=== PATIENT | female | born 1955 | race Caucasian/White ===

== ENCOUNTER 2025-03-07 09:29 | Outpatient (CLI) | payer MEDICARE, BC, SELFPAY | END 2025-03-07 09:30 | disposition home or self-care (01) | LOC: INJ CL 09:35 | PROVIDERS: PCP Family Medicine; Visit Provider Family Medicine | DX: M54.16 Radiculopathy, lumbar region (principal); M51.369 Other intervertebral disc degeneration, lumbar region without mention of lumbar back pain or lower extremity pain | CPT/HCPCS: 64483; Q9966 ==

== ENCOUNTER 2025-03-22 10:17 | Emergency (ER) | payer MEDICARE, BC, SELFPAY ==
--- OUTSIDE RECORDS SUMMARY | 2025-03-22 10:19 | XMS_ITS | Clinical Summary ---
Author Organization [facility] Address [address] [place] [id number] Care Team Providers Care Uptwister Tender Name Role Phone Diana Martin DO Primary Care Provider Allergies No known active allergies Medications MULTIVITAMIN TAB take 1 tablet by oral route once daily with food 0 12/19/19 08 Active cholecalciferol (VITAMIN D) 1,000 unit capsule Take 1 capsule by mouth once daily. 0 11/15/19 13 Active aspirin (ECOTRIN) 81 mg enteric coated tablet Take 1 tablet by mouth once daily with a meal. 0 11/03/19 17 Active yjmkianfsxg-dblmbl-ohre- collag [id number] mg tab One tablet daily. 0 03/11/20 19 Active calcium carbonate (CALTRATE) 600 mg calcium (1,500 mg) tablet Take 1 Tablet (600 mg) by mouth once daily with a meal. 180 Tablet 3 08/17/19 22 Active ALPRAZolam (XANAX) 0.25 mg tabletIndications:Anxiet y state TAKE 1 TO 2 TABLETS BY MOUTH UP TO THREE TIMES DAILY NEEDED 30 Tablet 2 09/01/19 24 Active fluticasone (50 mcg per actuation) nasal solution (FLONASE)Indications:Env ironmental allergies,Dysfunction of left eustachian tube Inhale 2 Sprays in both nostrils once daily. 16 g 11 09/05/19 25 Active rosuvastatin 5 mg tabletIndications:Famili al hypercholesterolemia Take 1 Tablet (5 mg) by mouth at bedtime. 90 Tablet 3 09/05/19 25 Active temazepam 7.5 mg capsuleIndications:Anxie ty state,Insomnia, idiopathic Take 1-2 Capsules (7.5-15 mg) by mouth at bedtime if needed for Sleep. 45 Capsule 1 09/05/19 25 Active alendronate (FOSAMAX) 70 mg tabletIndications:Osteop orosis without current pathological fracture, unspecified osteoporosis type TAKE ONE TABLET BY MOUTH ONCE A WEEK IN THE MORNING ON AN EMPTY STOMACH WITH A FULL GLASS OF WATER, DO NOT LIE DOWN FOR ONE HOUR 13 Tablet 3 02/09/20 25 Active omeprazole 20 mg tabletIndications:Other cough Take 1 Tablet (20 mg) by mouth once daily before a meal. 90 Tablet 1 02/18/20 25 Active cyclobenzaprine (FLEXERIL) 5 mg tabletIndications:Lumbos acral radiculopathy at L4,Spinal stenosis of lumbar region without neurogenic claudication Take 1 Tablet (5 mg) by mouth three times daily. 30 Tablet 03/19/20 25 Active Active Problems Problem Noted Date Diagnosed Date Pap smear for cervical cancer screening 08/16/19 Overview (04/22/2022): 08/2021 UNS/HPV negative 03/2022 NIL. Plan: Routine Screening. Rotator cuff strain 11/07/2011 Overview (11/07/2011): Suggest avoid activities which exacerbate. 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 Office Visit [facility] at [address] [address] Finesse Sin MD Procedure (Left L4-5 TFESI) 03/07/2025 Travel 03/02/2025 Travel 02/10/2025 Orders Only [facility] [address] [place] [address] Diana Martin DO <No scans attached> 02/07/2025 2:00 PM CDT Ancillary Procedure [address] [address] 02/07/2025 Travel 02/07/[address] [id number] Diana Martin DO Refill Request (Alendronate) 02/02/2025 Travel 01/24/2025 11:15 AM CDT Ancillary Procedure [address] [address] 01/24/2025 10:15 AM CDT Office Visit [address] [address] Diana Martin DO Hip Pain/problem (ongoing, goes down leg) 01/24/2025 Travel 01/22/2025 Travel 12/30/2024 12:45 PM [address]T Orders [facility] [address] [facility] [place] [address] Rachel Tillman <No scans attached> 12/29/2024 Travel 12/24/2024 Orders Only [address] [address] Diana Martin DO <No scans attached> 12/23/2024 9:00 AM CDT Office Visit [address] [address] Eliz Larsen PA Musculoskeletal Problem (Low back pain, Hx of bulging disk ) 12/23/2024 Travel from Last 3 Months Immunizations Immunization Administration Dates Next Due COVID-19 vaccine (Moderna 100mcg/0.5mL) YOLI ROMERO 03/21/2021,07/16/2020,06/18/2020 COVID-19 vaccine (Moderna 50mcg/0.5mL) 12YO+ BIVALENT PF, MDV 03/29/2022 COVID-19 vaccine (Pfizer-Bio NTech 30mcg/0.3mL) PF, MDV 09/08/2020,08/18/2020 Influenza A (H1N1), Inactiva allyssa (Age >=3 Years) 04/07/2009 Influenza, IIV3 (Age >=3 years) 01/21/20 11,02/15/2010,01/21/2010,2008 Influenza, IIV4 03/29/2022, 0,03/11/2019,2017 Influenza, Inactivated AIIV4 (Age 65+ Years) Preserv Free 05/02/2023 Influenza, Inactivated IIV3 (Age 65+ Years) Preserv Free 01/24/2025 Influenza,CCIIV4 PRESERV FREE 03/21/2021 Pneumococcal Conj 20-valent (Prevnar 20) 08/17/2022 Td (Age >=7 Years) 08/16/2021,02/20/2006 Tdap 11/07/2011 Tuberculin (PPD) 12/19/2007 Zoster (Shingrix-RZV, recombinant) 06/10/2019, Family History Medical History Relation Name Comments Cancer Brother Myke prostate Diabetes Brother Myke Hyperlipidemia Brother Myke Cancer Father Chacho Lawrence small cell Heart Disease Father Chacho Lawrence Angina/had aortic anurysim Stroke Father Chacho Lawrence Cancer-breast Maternal Aunt 70's Diabetes Mother Asha Psychiatric illness Mother Asha mental h ealth concerns Dementia Sister 1 Ashtyn early signs Hyperlipidemia Sister 1 Ashtyn Other Sister 1 Ashtyn Anxiety Issues Anesthesia Problem No Family History Blood Disease No Family History Relation Name Status Comments Brother Myke Father Chacho Lawrence (Age 74) small c ell ca Maternal Aunt Mother Asha (Age 81) Sister 1 Ashtyn Alive Sister 2 Mary (Age 34) Down's Syn drome Social History Tobacco Use Types Packs/Day Years Used Date Smoking Tobacco: Never Smokeless Tobacco: Never Tobacco Cessation:Counseling Given: No Alcohol Use Standard Drinks/Week Comments Yes 7 (1 standard drink = 0.6 oz pur e alcohol) occ PHQ-2 Answer Date Recorded PHQ-2 TOTAL SCORE 0 09/03/2024 [facility] - Occupational Stress Questionnaire Answer Date Recorded Feeling of Stress To some extent 03/11/2019 Exercise Vital Sign Answer Date Recorde d Days of Exercise per Week 2 days 2018 Minutes of Exercise per Session 60 min 03/11/2019 Social Connections Answer Date Recorded Do you often feel lonely or isolated from those around you? 0 09/04/2024 Alcohol Use Answer Date Recorded How often do you have a drink containing alcohol ? 0 12/23/2024 Average Number of Drinks Not on file 025 Frequency of Binge Drinking Not on file 11/2024 Financial Resource Strain Answer Date R ecorded Difficulty of Paying Living Expenses 3 09/04/2024 Difficulty of Paying Living Expenses Not on file 09/04/2024 Food Insecurity Answer Date Recorded Do you worry your food will run out before you are able to buy more? 1 09/04/2024 Transportation Needs Answer Date Record ed Does lack of transportation keep you from medica l appointments? 1 09/04/2024 Does lack of transportation keep you from work, meetings or getting things that you need? 1 09/04/2024 Housing Stability Answer Date Recorded What is your housing situation today? 1 09/04/2024 Utilities Answer Date Recorded Do you have trouble paying f or utilities (for example, heat, electricity, water, phone)? 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 Gender Identity Not on file Sexual Orientation Not on file Occupation Industry Job Start Date Job End Date [employer]: [employer] Not on file Not on file Not on file Obstetrics History Para Term AB IAB SAB Ectopic Multiple Livin g Live Births 2 2 2 Date Outcome GA Total Labor Labor/2nd/3rd Weight Sex Type Anes PTL Destiny A1 A5 Name Clin Para Para Comments:C section: Fa cial Presentation Last Filed Vital Signs Vital Sign Reading Time Taken Comments Blood Pressure 111/67 01/24/2025 10:20 AM CDT Pulse 70 01/24/2025 10:20 AM CDT Temperature 36.4 C (97.6 F) 12/23/2024 9:07 AM CDT Respiratory Rate 20 05/16/2019 3:01 PM MAIN LINE STATION ENGINEER Oxygen Saturation 100% 01/24/2025 10:20 AM CDT Inhaled Oxygen Concentration - - Weight 58.1 kg (128 lb) 01/24/2025 10:20 AM CDT Height 159.5 cm (5' 2.8) 09/04/2024 8:25 AM CDT Body Mass Index 22.82 09/04/2024 8:25 AM CDT Plan of Treatment Health Maintenance Due Date Last Done Comments COVID-19 vaccine series (2024- season) 2024 05/02/2023, 03/29/2022, 03/21/2021, Additional history exists Mammogram for age 45-75 08/28/2025 08/29/19, 08/28/2023, 08/17/2022, Additional history exists Depression screening for age 12+ 09/03/2025 09/03/2024, 08/23/2023, 03/22/2023, Additional history exists BMI (ht and wt on same day) for age 18+ 09/04/2025 09/04/2024, 08/23/2023, 08/17/2022, Additional history exists Medicare Wellness for age 65+ 09/05/2025 09/04/2024, 08/23/2023, 08/17/2022 Lipids for age 45-75 09/04/2029 09/04/2024, 08/23/2023, 08/17/2022, Additional history exists Colonoscopy through age 75 01/27/203001/27, 01/28/2020, 01/28/2020, Additional history exists Tetanus booster 08/17/2031 08/16/2021, 10/16, 02/20/2006 RSV vaccine for adults or (1 - 1-dose 75+ series) 2032 Hepatitis C screening for age 18-79 Completed 11/14/2012 Zoster (shingles) series for age 50+ Completed 06/10/2019, 03/11/2019 Pneumococcal series for age 50+ Completed 08/17/2022 DEXA/DXA scan for age 65+ Completed 2023, 09/01/2021, 08/16/2021, Additional history exists Influenza Vaccine Completed 01/24/2025, , 03/29/2022, Additional history exists Hepatitis B series for 19+ Aged Out N o longer eligible based on patient's age to complete this topic Procedures Procedure Name Priority Date/Time Associated Diagnosis Comments AMB EPIDURAL STEROID INJECTION Routine 03/07/2025 6:52 AM MAIN LINE STATION ENGINEER Lumbosacral radiculopathy at L4 Spinal stenosis of lumbar region with neurogenic claudication WA NJX AA&/STRD TFRML EPI LUMBAR/SACRAL 1 LEVEL Routine 03/07/2025 12:00 AM MAIN LINE STATION ENGINEER Lumbosacral radiculopathy at L4 Spinal stenosis of lumbar region with neurogenic claudication MR SPINE LUMBAR WO Routine 02/07/2025 2: 20 PM CDT Chronic midline low back pain with left-sided sciatica XR SPINE LUMBAR MINIMUM 4 VIEWS Routine 01/24/2025 11:25 AM CDT Chronic midline low back pain with left-sided sciatica C-REACTIVE PROTEIN Routine 12/30/2024 1: 19 PM CDT Gluteal pain Degeneration of intervertebral disc of lumbar region with discogenic back pain SEDIMENTATION RATE Routine 12/30/2024 1: 19 PM CDT Gluteal pain Degeneration of intervertebral disc of lumbar region with discogenic back pain LIPID PANEL W REFLEX MEASURED LDL Routine 09/04/2024 9:26 AM CDT Familial hypercholesterolemia Mixed hyperlipidemia XR MAMMO YESSENIA BILAT SCREEN Routine 08/28/2024 3:30 PM CDT Visit for screening mammogram XR DXA BONE DENSITY 2 SITES AXIAL Routine 08/28/2023 3:15 PM CDT Postmenopausal Osteoporosis without current pathological fracture, unspecified osteoporosis type COLONOSCOPY SCREENING Routine 01/28/2020 9:34 AM CDT Screening for colon cancer ANTI HCV Routine 11/14/2012 2:56 PM CDT Fatigue from Last 3 Months or Most Recently Relevant to Health Maintenance Results * WA NJX AA&/STRD TFRML EPI LUMBAR/SACRAL 1 LEVEL (03/07/2025 12:00 AM MAIN LINE STATION ENGINEER) us Finesse Sin MD PB - NERVOUS SYSTEM SERVIC ES Final Result * MR SPINE LUMBAR WO (02/07/2025 2:20 PM CDT) Anatomical Region Laterality Modality Spine, LUMBAR SPINE Magnetic Res onance 02/08/2025 9:07 PM CDT Addenda Addendum by Jayson Garrison MD on 02/08/2025 9:59 PM CDT For Patients: As a result of the Cures Act, medical imaging exams and procedure reports are released immediately into your electronic medical record. You may view this report before your referring provider. If you have questions, please contact your health care provider. INDICATION: Chronic midline low back pain, left-sided sciatica. TECHNIQUE: Multisequence multiplanar MRI of the lumbar spine without the use of intravenous contrast. COMPARISON: Correlated with lumbar spine radiographs dated 01/24/2025. FINDINGS: Leftward upper lumbar curvature with apex at L1-L2. Posterior aspects of the vertebral bodies are aligned. Vertebral body heights are maintained. There is multilevel disc desiccation and height loss. The conus medullaris terminates normally at the upper L1 level. T12-L1: Posterior disc bulge eccentric to the right. Mild bilateral facet joint arthrosis. Mild narrowing of the right lateral recess. No high-grade spinal canal stenosis or significant neural foraminal narrowing. L1-L2: Symmetric disc bulge. Moderate right facet joint arthrosis. Mild narrowing of the right lateral recess. No high-grade spinal canal stenosis or significant neural foraminal narrowing. L2-L3: Symmetric disc bulge. Moderate bilateral facet joint arthrosis. Mild narrowing of the right lateral recess. No high-grade spinal canal stenosis or significant neural foraminal narrowing. L3-L4: Symmetric disc bulge. Advanced facet joint arthrosis with a 7 mm anteriorly projecting right facet joint synovial cyst (series 7, image 9). Severe spinal canal stenosis with near-complete effacement of the thecal sac. Mild bilateral neural foraminal narrowing. L4-L5: Symmetric disc bulge. Moderate facet joint arthrosis. Mild spinal canal stenosis and moderate left neural foraminal narrowing. No significant right neural foraminal narrowing. L5-S1: Mild facet joint arthrosis. No significant spinal canal or neural foraminal stenosis. IMPRESSION: 1. Leftward upper lumbar curvature with apex at L1-L2. 2. At T12-L1, L1-L2, and L2-L3, mild narrowing of the right lateral recess. 3. At L3-L4, severe spinal canal stenosis with near complete effacement of the thecal sac. A 7 mm anteriorly projecting right facet joint synovial cyst (series 7, image 9) contributes to spinal canal stenosis. 4. At L4-L5, mild spinal canal stenosis and moderate left neural foraminal narrowing. Dictated by Reese Garrison MD @ 02/08/2025 9:59:36 PM (Electronically Signed) Addendum by Jayson Garrison MD on 02/08/2025 9:26 PM CDT For Patients: As a result of the Cures Act, medical imaging exams and procedure reports are released immediately into your electronic medical record. You may view this report before your referring provider. If you have questions, please contact your health care provider. INDICATION: Chronic midline low back pain. TECHNIQUE: Multisequence multiplanar MRI of the lumbar spine without the use of intravenous contrast. COMPARISON: Correlated with lumbar spine radiographs dated 01/24/2025. FINDINGS: Leftward upper lumbar curvature with apex at L1-L2. Vertebral body heights are maintained. No T1 hypointense infiltrative lesion is identified. There is multilevel disc desiccation and loss. The conus medullaris terminates normally the upper L1 level. T12-L1: Posterior disc bulge eccentric to the right. Mild facet joint arthrosis. Mild narrowing of the right lateral recess. No high-grade spinal canal stenosis or significant neural foraminal narrowing. L1-L2: Symmetric disc bulge. Moderate right facet joint arthrosis. Mild narrowing of the right lateral recess without high-grade spinal canal stenosis. No significant neural foraminal narrowing. L2-L3: Symmetric disc bulge. Moderate facet joint arthrosis. Mild narrowing of the right lateral recess. No high-grade spinal canal stenosis or significant neural foraminal narrowing. L3-L4: Symmetric disc bulge. Moderate facet joint arthrosis. Severe spinal canal stenosis with near-complete effacement of the thecal sac and mild bilateral neural foraminal narrowing. L4-L5: Symmetric disc bulge. Moderate facet joint arthrosis. Mild spinal canal stenosis and mild-moderate left neural foraminal narrowing. No significant right neural foraminal narrowing. L5-S1: Mild right and moderate left facet joint arthrosis. No significant spinal canal or neural foraminal stenosis. IMPRESSION: 1. Leftward upper lumbar curvature with apex at L1-L2. 2. At T12-L1, L1-L2, and L2-L3, mild narrowing of the right lateral recess. 3. At L3-L4, severe spinal canal stenosis with near complete effacement of the thecal sac. 4. At L4-L5, mild spinal canal stenosis and mild-moderate left neural foraminal narrowing. Dictated by Reese Garrison MD @ 02/08/2025 9:07:18 PM (Electronically Signed) Impressions 02/08/2025 9:07 PM CDT 1. Leftward upper lumbar curvature with apex at L1-L2. 2. At T12-L1, L1-L2, and L2-L3, mild narrowing of the right lateral recess. 3. At L3-L4, severe spinal canal stenosis with near complete effacement of the thecal sac. 4. At L4-L5, mild spinal canal stenosis and mild-moderate left neural foraminal narrowing. Dictated by Reese Garrison MD @ 02/08/2025 9:07:18 PM (Electronically Signed) Narrative 02/08/2025 9:07 PM CDT For Patients: As a result of the Cures Act, medical imaging exams and procedure reports are released immediately into your electronic medical record. You may view this report before your referring provider. If you have questions, please contact your health care provider. INDICATION: Chronic midline low back pain. TECHNIQUE: Multisequence multiplanar MRI of the lumbar spine without the use of intravenous contrast. COMPARISON: Correlated with lumbar spine radiographs dated 01/24/2025. FINDINGS: Leftward upper lumbar curvature with apex at L1-L2. Vertebral body heights are maintained. No T1 hypointense infiltrative lesion is identified. There is multilevel disc desiccation and loss. The conus medullaris terminates normally the upper L1 level. T12-L1: Posterior disc bulge eccentric to the right. Mild facet joint arthrosis. Mild narrowing of the right lateral recess. No high-grade spinal canal stenosis or significant neural foraminal narrowing. L1-L2: Symmetric disc bulge. Moderate right facet joint arthrosis. Mild narrowing of the right lateral recess without high-grade spinal canal stenosis. No significant neural foraminal narrowing. L2-L3: Symmetric disc bulge. Moderate facet joint arthrosis. Mild narrowing of the right lateral recess. No high-grade spinal canal stenosis or significant neural foraminal narrowing. L3-L4: Symmetric disc bulge. Moderate facet joint arthrosis. Severe spinal canal stenosis with near-complete effacement of the thecal sac and mild bilateral neural foraminal narrowing. L4-L5: Symmetric disc bulge. Moderate facet joint arthrosis. Mild spinal canal stenosis and mild-moderate left neural foraminal narrowing. No significant right neural foraminal narrowing. L5-S1: Mild right and moderate left facet joint arthrosis. No significant spinal canal or neural foraminal stenosis. Procedure Note Jayson Garrison MD - 02/08/2025 For Patients: As a result of the Cures Act, medical imagingexams and procedure reports are released immediately into your electronicmedical record. You may view this report before your referring provider.If you have questions, please contact your health care provider. INDICATION: Chronic midline low back pain. TECHNIQUE: Multisequence multiplanar MRI of the lumbar spine without the use ofintravenous contrast. COMPARISON: Correlated with lumbar spine radiographs dated 01/24/2025. FINDINGS: Leftward upper lumbar curvature with apex at L1-L2. Vertebral body heightsare maintained. No T1 hypointense infiltrative lesion is identified. Thereis multilevel disc desiccation and loss. The conus medullaris terminatesnormally the upper L1 level. T12-L1: Posterior disc bulge eccentric to the right. Mild facet jointarthrosis. Mild narrowing of the right lateral recess. No high-gradespinal canal stenosis or significant neural foraminal narrowing. L1-L2: Symmetric disc bulge. Moderate right facet joint arthrosis. Mildnarrowing of the right lateral recess without high-grade spinal canalstenosis. No significant neural foraminal narrowing. L2-L3: Symmetric disc bulge. Moderate facet joint arthrosis. Mildnarrowing of the right lateral recess. No high-grade spinal canal stenosisor significant neural foraminal narrowing. L3-L4: Symmetric disc bulge. Moderate facet joint arthrosis. Severe spinalcanal stenosis with near-complete effacement of the thecal sac and mildbilateral neural foraminal narrowing. L4-L5: Symmetric disc bulge. Moderate facet joint arthrosis. Mild spinalcanal stenosis and mild-moderate left neural foraminal narrowing. Nosignificant right neural foraminal narrowing. L5-S1: Mild right and moderate left facet joint arthrosis. No significantspinal canal or neural foraminal stenosis. IMPRESSION: 1. Leftward upper lumbar curvature with apex at L1-L2. 2. At T12-L1, L1-L2, and L2-L3, mild narrowing of the right lateralrecess. 3. At L3-L4, severe spinal canal stenosis with near complete effacement ofthe thecal sac. 4. At L4-L5, mild spinal canal stenosis and mild-moderate left neuralforaminal narrowing. Dictated by Reese Garrison MD @ 02/08/2025 9:07:18 PM (Electronically Signed) us Diana Martin DO MR Edited Resu lt - Final * XR SPINE LUMBAR MINIMUM 4 VIEWS (01/24/2025 11:25 AM CDT) Anatomical Region Laterality Modality Spine, LUMBAR SPINE Computed Rad iography 01/24/2025 3:39 PM CDT Impressions 01/24/2025 3:39 PM CDT Levo scoliotic deformity with multilevel degenerative disc disease and facet degeneration. No instability with flexion or extension. Dictated by Tung Snyder MD @ 01/24/2025 3:39:32 PM (Electronically Signed) Narrative 01/24/2025 3:39 PM CDT For Patients: As a result of the Century Cures Act, medical imaging exams and procedure reports are released immediately into your electronic medical record. You may view this report before your referring provider. If you have questions, please contact your health care provider. INDICATION: Chronic midline low back pain with left-sided sciatica TECHNIQUE: 7-view lumbar spine, including lateral flexion and extension and bilateral obliques. COMPARISON: 12/19/2024 FINDINGS: Levoscoliotic deformity upper lumbar spine. No vertebral body compression fracture. No spondylolisthesis. Vascular calcifications. Disc space narrowing and spurring on the left at L4-5 and on the right at L2-3, L1-2 and T12-L1. Facet degeneration lower lumbar spine. No pars defect. Procedure Note Tung Snyder MD - 01/24/2025 For Patients: As a result of the Cures Act, medical imagingexams and procedure reports are released immediately into your electronicmedical record. You may view this report before your referring provider.If you have questions, please contact your health care provider. INDICATION: Chronic midline low back pain with left-sided sciatica TECHNIQUE: 7-view lumbar spine, including lateral flexion and extension and bilateralobliques. COMPARISON: 12/19/2024 FINDINGS: Levoscoliotic deformity upper lumbar spine. No vertebral body compressionfracture. No spondylolisthesis. Vascular calcifications. Disc spacenarrowing and spurring on the left at L4-5 and on the right at L2-3, L1-2and T12-L1. Facet degeneration lower lumbar spine. No pars defect. IMPRESSION: Levo scoliotic deformity with multilevel degenerative disc disease andfacet degeneration. No instability with flexion or extension. Dictated by Tung Snyder MD @ 01/24/2025 3:39:32 PM (Electronically Signed) Diana Martin DO GENERAL IMAGING Final Resul t * SEDIMENTATION RATE (12/30/2024 1:19 PM CDT) [facility] SED RATE BY MODIFIED CORNELIO 2 < OR = 30 mm/h 12/31/2024 6:41 AM CDT [employer] Blood BLOOD SPECIMEN / Unknown [facility] / Unknown 12/30/2024 1:19 PM CDT 12/30/2024 1:19 PM CDT Diana Martin DO HEMATOLOGY Final Resul t [employer] [facility] [address] [place] [address], [place] [phone] * C-REACTIVE PROTEIN (12/30/2024 1:19 PM CDT) C-REACTIVE PROTEIN (MG/L) <3.0 <8.0 mg/L 12/31/2024 12:09 PM CDT [facility] Blood BLOOD SPECIMEN / Unknown [facility] / Unknown 12/30/2024 1:19 PM CDT 12/30/2024 1:19 PM CDT us Dinaa Canales Faitht DO CHEMISTRY Final Resul t [facility] [address] [place] [address], [place] [phone] * LIPID PANEL W REFLEX MEASURED LDL (09/04/2024 9:26 AM CDT) Pathologist [facility] CHOLESTEROL, TOTAL 173 <200 mg/dL [facility] HDL CHOLESTEROL 68 > OR = 50 mg/dL [facility] TRIGLYCERIDES 68 <150 mg/dL [facility] LDL-CHOLESTEROL 90 mg/dL (calc) [facility] Comment: Reference range: <100 Desirable range <100 mg/dL for primary prevention; <70 mg/dL for patients with CHD or diabetic patients with > or = 2 CHD risk factors. LDL-C is now calculated using the Kulwant-Wali calculation, which is a validated novel method providing better accuracy than the Friedewald equation in the estimation of LDL-C. Kulwant SS et al. VARGHESE. 2013;310(19): 6578-8109 (http://education.Greenstack.TeleCIS Wireless/faq/QHE150) CHOL/HDLC RATIO 2.5 <5.0 (calc) [facility] NON HDL CHOLESTEROL 105 <130 mg/dL (calc) [facility] Comment: For patients with diabetes plus 1 major ASCVD risk factor, treating to a non-HDL-C goal of <100 mg/dL (LDL-C of <70 mg/dL) is considered a therapeutic option. Blood BLOOD SPECIMEN / Unknown 09/04/2024 9:26 AM CDT 09/04/2024 9:27 AM CDT Narrative [facility] - 09/05/2024 4:32 AM CDT FASTING:YES FASTING: YES Diana Cuevast DO CHEMISTRY Final Resul t [facility] [address] [place] [address], [place] [phone] [facility] [address] [place] [address] * XR MAMMO YESSENIA BILAT SCREEN (08/28/2024 3:30 PM CDT) Anatomical Region Laterality Modality BREASTS, Breast Left, Breast Right Bilateral Mammography Impressions 08/28/2024 3:57 PM CDT There is no radiographic evidence for malignancy. Recommend annual mammograms. MAMMOGRAM ASSESSMENT: ACR 1 Negative PATIENTS: You will also receive a letter with your examination results in an easy to read format. If you have questions about your results, please contact your referring provider. Narrative 08/28/2024 3:57 PM CDT For Patients: As a result of the Century Cures Act, medical imaging exams and procedure reports are released immediately into your electronic medical record. You may view this report before your referring provider. If you have questions, please contact your health care provider. XR MAMMO YESSENIA BILAT SCREEN [[id number]] CLINICAL HISTORY: This is an asymptomatic 69 y.o. patient. INDICATION FOR EXAM: Mammogram Screening. TECHNIQUE: CC and MLO views were obtained. This study was evaluated with the assistance of Computer-Aided Detection. Breast Tomosynthesis was used in interpretation. COMPARISON FILM: Yes 08/28/23 [facility] 08/17/22 [facility] FINDINGS: The breasts are heterogeneously dense, which may obscure small masses. There are no dominant masses, suspicious micro calcifications or areas of architectural distortion. Diana Canales Detert DO MAMMO Final Resul t * (ABNORMAL) XR DXA BONE DENSITY 2 SITES AXIAL [82747.1] (08/28/2023 3:15 PM CDT) Anatomical Region Laterality Modality Spine, HIPS, HIPL, HIPR Other Impressions 09/05/2023 1:54 PM CDT Osteoporosis. Due to the stability of the bone density, continue present medication if indicated. RECOMMENDATIONS: The National Osteoporosis Foundation recommends pharmacologic treatment for patients with T-scores of -2.5 or less, patients with prior history of fragility fractures, or patients with 10-year probability of greater than 3% at hips or greater than 20% of suffering major osteoporotic fractures. Recommend continued optimization of calcium and vitamin D intake through dietary means and/or supplementation and regular exercise. Continue current Alendronate (Fosamax) medication treatment. Consider a drug holiday from bisphosphonates if indicated. Follow up in 2 years. Corazon Swift PA-C [facility] 09/05/2023 Narrative 09/05/2023 1:54 PM CDT For Patients: Results are automatically released to your [facility] ([employer]) account once available, in compliance with federal regulations. This means that you may see your results before your provider has had a chance to review them. Please allow 2-3 business days for your provider to comment on the results. XR DXA Bone Mineral Density (BMD) EXAM LOCATION: [address] [address] PATIENT NAME: Mari Wells DATE OF : 1955 EXAM DATE: 08/28/2023 REQUESTING PROVIDER: Diana Martin DO GENDER AT : female HEIGHT: 5' 2 (08/23/2023) WEIGHT: 126 lb (08/23/2023) MENOPAUSAL STATUS: Postmenopausal RACE/ETHNICITY: White RISK FACTORS: Family History of Osteoporosis, Weight < 127 lbs., and White Race CURRENT MEDICATION FOR BONE LOSS: Alendronate (Fosamax) INDICATION: Follow-up of existing osteoporosis COMPARISON DATE(S): 2021 DXA scans are compared to prior studies for a patient only when the two (or more) studies were performed on the same scanner. It is not possible to compare data generated on one scanner to data from another because there are not standards in DXA equipment. This applies even if the two scanners are made by the same heat treater apprentice. PROCEDURE: Dual-energy x-ray absorptiometry performed with routine technique. Reporting is completed in the form of a T-score. The T-score represents the standard deviation from peak bone mass based on young healthy adult. A Z-score is used for diagnosis in premenopausal women, and for men under the age of 50. FINDINGS: RESULT LUMBAR SPINE L1 - L4 BMD: 1.220 g/cm2 T-Score: + 0.2 Z-Score: + 2.1 Change from prior in 2021: Increase 11.3%. RESULTS FEMUR Left femoral neck BMD: 0.684 g/cm2 T-Score: - 2.5 Z-Score: - 0.9 Change from prior in 2021: Increase 2.4%. Right femoral neck BMD: 0.711 g/cm2 T-Score: - 2.4 Z-Score: - 0.7 Change from prior in 2021: Decrease 6.0%. Left hip BMD: 0.773 g/cm2 T-Score: - 1.9 Z-Score: - 0.4 Change from prior in 2021: Increase 6.9%. Right hip BMD: 0.765 g/cm2 T-Score: - 1.9 Z-Score: - 0.5 Change from prior in 2021: Decrease 0.4%. WHO criteria: Normal: T-score at or above -1 SD Osteopenia: T-score between -1.1 and -2.4 SD Osteoporosis: T-score at or below -2.5 SD Diana Coultera Detert DO DEXA Final Resul t * COLONOSCOPY SCREENING (01/28/2020 9:34 AM CDT) Diana Canales Detert DO GI PROCEDURE ORD Final Resu lt * ANTI HCV [[id number]] (11/14/2012 2:56 PM CDT) ANTI HCV Non-reacti ve [facility] Blood specimen (specimen) BLOOD SPECIMEN / Unknown 11/14/2012 2:56 PM CDT 11/14/2012 2:49 PM CDT John Briones MD SEND OUTS Final Result [facility] INTERNAL ZIP [id number] [place] [address] from Last 3 Months or Most Recently Relevant to Health Maintenance Insurance [employer] [place] [id number] [employer] [place] BLUE HB ONLY MEDICARE PART A HB ONLY Advance Directives Documents on File Type Date Recorded Patient Fairing Man Expl anation Healthcare Directive 05/04/2021 022 Care Teams Uptwister Tender Relationship Specialty Start Date End Date Diana Martin [place] [address] PCP - General Family Practice 02/21/19
[2025-03-22 10:22] VITALS: BP 144/75; PULSE 80; RESP 18; TEMP 36.9; O2SAT 99; BMI 22.9
--- NOTE | 2025-03-22 11:05 | ED_ITS ---
HPI - General Adult General Chief complaint: Extremity Pain/Injury, Lower Stated complaint: pain in legs Time Seen by Provider: 03/22/25 10:52 History of Present Illness HPI narrative: This 69-year-old female comes in reporting worsening low back pain radiating down her left leg. 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 She did have a therapeutic injection a couple weeks ago which brought very temporary relief lasting about a day. She can often get into a certain position where she has no pain but in more recent days she has sometimes been unable to get such relief. She has been taking Flexeril and sxym-ckr-exdsiet medicines. She does not report any recent injury event that would worsen these symptoms. Related Data Home Medications ?Medication ?Instructions ?Recorded ?Confirmed alendronate 70 mg tablet 70 mg PO 03/22/25 cyclobenzaprine 5 mg tablet 5 mg PO 3XD 03/22/2503/22 fluticasone propionate 50 2 spray intranasal DAILY 10/0903/22/25 mcg/actuation nasal spray,suspension omeprazole 20 mg capsule,delayed 20 mg PO DAILY 03/22/25 release rosuvastatin 5 mg tablet 5 mg PO QPM 03/22/25 5 temazepam 7.5 mg capsule 7.5 - 15 mg PO QPM PRN insom reji 03/22/25 03/22/25 Previous Rx's ?Medication ?Instructions ?Recorded gabapentin 100 mg capsule 100 mg PO TID #60 caps 03/22 hydrocodone 5 mg-acetaminophen 325 1 tab PO Q4-6H PRN pain #20 tabs 03/22/25 mg tablet ketorolac 10 mg tablet 10 mg PO TID 5 days #15 tabs 03/22/25 methylprednisolone 4 mg tablets in See Rx Instructions PO .COMPLEX 03/22/25 a dose pack (Medrol (Cricket)) #21 ea tizanidine 4 mg capsule 4 mg PO BID PRN muscle spast icity 03/22/25 #20 caps Allergies Allergy/AdvReac Type Severity Reaction Status Date / Time No Known Drug Allergies Allergy Verified 03/22/25 10:33 Review of Systems Status of ROS: Reports: 10 or more systems reviewed and unremarkable except as noted in History and below Narrative: Constitutional: No fevers, no weight gain or loss. Eyes: No discharge. No vision changes. HENT: No congestion, no sore throat, no ear pain. Cardiovascular: No chest pain, no palpitations. Respiratory: No shortness of breath, no wheezes, no cough. Gastrointestinal: No abdominal pain, no vomiting, no diarrhea. Genitourinary: No dysuria, no hematuria. Musculoskeletal: Normal range of motion. Skin: No rashes, no pruritis. Neurological: No dizziness, weakness, speech change. Endo/Heme/Allergies: No bruising or bleeding. No polydipsia. Pysch: no suicidality, no anxiety, no insomnia. All other systems reviewed and are negative. Exam Narrative: Exam Narrative: Constitutional: Well-developed, well-nourished, no acute distress. HEENT: Normocephalic, atraumatic. Neck: Normal range of motion. Nontender. Supple. Heart: Intact distal pulses. Lungs: No chest discomfort. No wheezes, rhonchi, or rales. Abdomen: Nontender. Back: Scoliosis. No distinct point tenderness. Pain emanates from lower back on the left side down her whole leg. Extremities: Normal range of motion. No injury. Skin: Intact. No rash. Warm. No erythema or pallor. Neurologic: No altered sensation. No weakness. Alert and oriented. Psychiatric: No suicidality. No anxiety or depression. No insomnia. Nursing notes and vitals signs are reviewed. Const: Vital Signs, click to edit/add: Vital Signs - 24 hr 03/22/25 10:22 Temperature 98.4 F Pulse Rate [Pulse Oximeter] 80 Respiratory Rate 18 Blood Pressure [Ri ght Upper Arm] 144/75 H Pulse Oximetry 99 Oxygen Delivery Me thod Room Air Course Vital Signs Vital signs: Initial Vital Signs Temperature 98.4 F 03/22/25 10:22 Temperature Source Temporal Artery Scan 03/22/25 10:22 Pulse Rate 80 03/22/25 10:22 Respiratory Rate 18 03/22/25 10:22 Blood Pressure 144/75 H 03/22/25 10:22 Blood Pressure Mean 98 03/22/25 10:22 Blood Pressure Position Sitting 03/22/25 10:22 Pulse Oximetry 99 03/22/25 10:22 Oxygen Delivery Method Room Air 03/22/25 10:22 Vital Signs Temperature 98.4 F 03/22/25 10:22 Pulse Rate 80 03/22/25 10:22 Respiratory Rate 18 03/22/25 10:22 Blood Pressure 144/75 H 03/22/25 10:22 Pulse Oximetry 99 03/22/25 10:22 Oxygen Delivery Method Room Air 03/22/25 10:22 Temperature 98.4 F 03/22/25 10:22 Pulse Rate 80 03/22/25 10:22 Respiratory Rate 18 03/22/25 10:22 Blood Pressure 144/75 H 03/22/25 10:22 Pulse Oximetry 99 03/22/25 10:22 Oxygen Delivery Method Room Air 03/22/25 10:22 Medical Decision Making MDM Narrative Medical decision making narrative: This patient has worsening symptoms from an established diagnosis by MRI study of scoliosis, spinal stenosis, and lumbar radiculopathy. She does not report any new injury event and does not show any worsening condition such as cauda equina syndrome. No imaging is indicated today. The patient does have a follow-up appointment with the neurosurgeon or spinal surgeon regarding these matters and this is scheduled to occur in a week or 2. Today the main agenda is better symptomatic relief. I did provide prescriptions for Medrol Dosepak, Toradol, [place], Zanaflex, and gabapentin. I describe signs and symptoms that would indicate a need for return and re-evaluation. Discharge Plan Discharge Clinical Impression: Left lumbar radiculopathy, Spinal stenosis, Scoliosis Patient Disposition: Home, Self-Care Condition: Stable Additional Instructions: Take medications as prescribed and needed. Follow up with clinic appointment as scheduled or return if worsening symptoms occur. Prescriptions: New hydrocodone-acetaminophen 5-325 mg tablet 1 tab PO Q4-6H PRN (Reason: pain) Qty: 20 0RF ketorolac 10 mg tablet 10 mg PO TID 5 Days Qty: 15 0RF gabapentin 100 mg capsule 100 mg PO TID Qty: 60 2RF methylprednisolone [Medrol (Cricket)] 4 mg tablets,dose pack See Rx Instructions .ROUTE .COMPLEX Qty: 21 0RF Rx Instructions: orally per package directions tizanidine 4 mg capsule 4 mg PO BID PRN (Reason: muscle spasticity) Qty: 20 0RF No Action alendronate 70 mg tablet 70 mg PO temazepam 7.5 mg capsule 7.5 - 15 mg PO QPM PRN (Reason: insomnia) omeprazole 20 mg capsule,delayed release(DR/EC) 20 mg PO DAILY fluticasone propionate 50 mcg/actuation spray,suspension 2 spray INTRANASAL DAILY cyclobenzaprine 5 mg tablet 5 mg PO 3XD rosuvastatin 5 mg tablet 5 mg PO QPM Follow Up/Referrals: Diana Martin DO [Primary Care Provider, Family Practice] Stand Alone Forms: [facility] Info Instructions
[2025-03-22 11:21] VITALS: BP 144/75; PULSE 80; RESP 18; TEMP 36.9
== END 2025-03-22 11:25 | disposition home or self-care (01) ==
LOC: ED 11:21
PROVIDERS: Emergency Provider Emergency Medicine Emergency Medical Services; PCP Family Medicine
DX: M54.16 Radiculopathy, lumbar region (principal); M48.061 Spinal stenosis, lumbar region without neurogenic claudication; Q67.5 Congenital deformity of spine
CPT/HCPCS: 99284

== ENCOUNTER 2025-03-23 17:50 | Emergency (ER) | payer MEDICARE, BC, SELFPAY ==
--- OUTSIDE RECORDS SUMMARY | 2025-03-23 17:53 | XMS_ITS | Clinical Summary ---
Author Organization [facility] [facility] Address [address] [place] [address] Care Team Providers Care Stem Dryer Maintainer Name Role Phone Diana Martin DO Primary Care Provider [phone] Allergies No known active allergies Medications MULTIVITAMIN TAB take 1 tablet by oral route once daily with food 0 12/19/19 08 Active cholecalciferol (VITAMIN D) 1,000 unit capsule Take 1 capsule by mouth once daily. 0 11/15/19 13 Active aspirin (ECOTRIN) 81 mg enteric coated tablet Take 1 tablet by mouth once daily with a meal. 0 11/03/19 17 Active ylmxynykukm-gqydqp-ptuo- collag 510-370-09-10 mg tab One tablet daily. 0 03/11/20 [...] as Throat Clearing - relieved with Fluticasone [place] Mixed hyperlipidemia 04/07/2009 Anxiety state, unspecified 01/11/2008 Other dyspnea and respiratory abnormality 2007 Encounters Date Type Department Care Team Description 03/07/2025 10:00 AM ABLE SEAMAN Office Visit [facility] at [address] [address] Finesse Sin MD Procedure (Left L4-5 TFESI) 03/07/2025 Travel 03/02/2025 Travel 02/10/2025 Orders Only [facility] [address] [place] [address] Diana Martin DO <No scans attached> 02/07/2025 2:00 PM CDT Ancillary Procedure [address] [address] 02/07/2025 Travel 02/07/[address] [address] Diana Martin DO Refill Request (Alendronate) 02/02/2025 Travel 01/24/2025 11:15 AM CDT Ancillary Procedure [address] [address] 01/24/2025 10:15 AM CDT Office Visit [address] [address] Diana Martin DO Hip Pain/problem (ongoing, goes down leg) 01/24/2025 Travel 01/22/2025 Travel 12/30/2024 12:45 PM CDT Orders Only [facility] [address] [facility] [place] [address] Rachel Tillman <No scans attached> 12/29/2024 Travel 12/24/2024 Orders Only [address] [address] Diana Martin DO <No scans attached> 12/23/2024 9:00 AM CDT Office Visit [address] [address] Eliz Larsen PA Musculoskeletal Problem (Low back [...] Date Recorded PHQ-2 TOTAL SCORE 0 09/03/2024 [facility] - Occupational Stress Questionnaire Answer Date [...] on file Legal Sex Female 6:42 AM ABLE SEAMAN Gender Identity Not on file Sexual Orientation [...] CDT Respiratory Rate 20 05/16/2019 3:01 PM ABLE SEAMAN Oxygen Saturation 100% 01/24/2025 10:20 AM CDT [...] EPIDURAL STEROID INJECTION Routine 03/07/2025 6:52 AM ABLE SEAMAN Lumbosacral radiculopathy at L4 Spinal stenosis of lumbar region with neurogenic claudication NH NJX AA&/STRD TFRML EPI LUMBAR/SACRAL 1 LEVEL Routine 03/07/2025 12:00 AM ABLE SEAMAN Lumbosacral radiculopathy at L4 Spinal stenosis of [...] Recently Relevant to Health Maintenance Results * NH NJX AA&/STRD TFRML EPI LUMBAR/SACRAL 1 LEVEL (03/07/2025 12:00 AM ABLE SEAMAN) us Finesse Sin MD PB - NERVOUS [...] * SEDIMENTATION RATE (12/30/2024 1:19 PM CDT) [facility] SED RATE BY MODIFIED CORNELIO 2 < OR = 30 mm/h 12/31/2024 6:41 AM CDT [facility] Blood BLOOD SPECIMEN / Unknown [facility] / Unknown 12/30/2024 1:19 PM CDT 12/30/2024 1:19 PM CDT Diana Martin DO HEMATOLOGY Final Resul t [facility] [address] [place] [address], [place] [phone] * C-REACTIVE PROTEIN (12/30/2024 1:19 PM CDT) C-REACTIVE PROTEIN (MG/L) <3.0 <8.0 mg/L 12/31/2024 12:09 PM CDT [facility] Blood BLOOD SPECIMEN / Unknown [facility] / Unknown 12/30/2024 1:19 PM CDT 12/30/2024 1:19 PM CDT us Diana Canales Faitht DO CHEMISTRY Final Resul t [facility] [address] [place] [address], [place] [phone] * LIPID PANEL W REFLEX MEASURED LDL (09/04/2024 9:26 AM CDT) Pathologist [facility] CHOLESTEROL, TOTAL 173 <200 mg/dL [facility] LDL-C. Kulwant SS et al. VARGHESE. 2013;310(19): 6132-3562 (http://education.Imgur.Zuujit/faq/QXS128) CHOL/HDLC RATIO 2.5 <5.0 (calc) [facility] [...] Diana Cuevast DO CHEMISTRY Final Resul t [facility] [address] [place] [address], [place] [phone] [facility] [address] [place] [address] * XR MAMMO YESSENIA BILAT SCREEN (08/28/2024 [...] care provider. XR MAMMO YESSENIA BILAT SCREEN [[id number]] CLINICAL HISTORY: This is an asymptomatic 69 y.o. patient. INDICATION FOR EXAM: Mammogram Screening. TECHNIQUE: CC and MLO views were obtained. This study was evaluated with the assistance of Computer-Aided Detection. Breast Tomosynthesis was used in interpretation. COMPARISON FILM: Yes 08/28/23 [facility] 08/17/22 [facility] FINDINGS: The breasts are heterogeneously dense, which may obscure small masses. There are no dominant masses, suspicious micro calcifications or areas of architectural distortion. Diana Canales Detert DO MAMMO Final Resul t * (ABNORMAL) XR DXA BONE DENSITY 2 SITES AXIAL [[id number]] (08/28/2023 3:15 PM CDT) Anatomical Region Laterality [...] up in 2 years. Corazon Swift PA-C [facility] 09/05/2023 Narrative 09/05/2023 1:54 PM CDT For Patients: Results are automatically released to your [facility] ([employer]) account once available, in compliance with federal regulations. This means that you may see your results before your provider has had a chance to review them. Please allow 2-3 business days for your provider to comment on the results. XR DXA Bone Mineral Density (BMD) EXAM LOCATION: [address] [address] PATIENT NAME: Mari Wells DATE OF : [...] two scanners are made by the same dialysis registered nurse. PROCEDURE: Dual-energy x-ray absorptiometry performed with routine [...] ORD Final Resu lt * ANTI HCV [[id number]] (11/14/2012 2:56 PM CDT) ANTI HCV Non-reacti ve [facility] Blood specimen (specimen) BLOOD SPECIMEN / Unknown 11/14/2012 2:56 PM CDT 11/14/2012 2:49 PM CDT John Briones MD SEND OUTS Final Result [facility] INTERNAL ZIP [address] [place] [address] from Last 3 Months or Most Recently Relevant to Health Maintenance Insurance [employer] [place] BLUE MR [place] [id number] [employer] [place] BLUE HB ONLY MEDICARE PART A HB ONLY Advance Directives Documents on File Type Date Recorded Patient Cold Strip Feeder Expl anation Healthcare Directive 05/04/2021 022 Care Teams Stem Dryer Maintainer Relationship Specialty Start Date End Date Diana Martin [place] [address] PCP - General Family Practice 02/21/19
[2025-03-23 18:25] VITALS: BP 161/83; PULSE 98; RESP 20; TEMP 37.1; O2SAT 95
--- NOTE | 2025-03-23 19:09 | ED.BACK ---
HPI - Back Pain/Injury General Chief Complaint: Back Injury/Pain Stated Complaint: Left leg and pelvis pain Time Seen by Provider: 03/23/25 18:38 History of Present Illness HPI Narrative: This 69-year-old female has a history of scoliosis and spinal stenosis. She has had symptoms also of a left lumbar radiculopathy and pain radiating down her left leg over the past several weeks. She has had an MRI to establish this diagnosis and actually had an injection a few weeks ago that brought relief for 2 or 3 days. She was seen by me yesterday with these same complaints stating that she can sometimes get into a comfortable position but when she moves from that position she has intense pain that is not adequately controlled. She also states that it seems that she has a hard time getting into a comfortable position. There was no injury event or strenuous activity that required repeat imaging yesterday or today. She was prescribed Medrol Dosepak, Toradol, [place], Zanaflex, and gabapentin. She reports that she has been taking all of these medicines but it is not helping her when she has these intense pain episodes. Currently she is comfortable as she is able to sit and position that is not aggravating the symptoms. Related Data Home Medications ?Medication ?Instructions ?Recorded ?Confirmed alendronate 70 mg tablet 70 mg PO 03/22/25 cyclobenzaprine 5 mg tablet 5 mg PO 3XD 03/22/25 03/22/25 fluticasone propionate 50 2 spray intranasal DAILY 03/22/25 03/22/25 mcg/actuation nasal spray,suspension omeprazole 20 mg capsule,delayed 20 mg PO DAILY 03/22/25 03/22/25 release rosuvastatin 5 mg tablet 5 mg PO QPM 03/22/25 03/22/25 temazepam 7.5 mg capsule 7.5 - 15 mg PO QPM PRN insomnia 03/22/25 03/22/25 Previous Rx's ?Medication ?Instructions ?Recorded gabapentin 100 mg capsule 100 mg PO TID #60 caps 03/22/25 hydrocodone 5 mg-acetaminophen 325 1 tab PO Q4-6H PRN pain #20 tabs 03/22/25 mg tablet ketorolac 10 mg tablet 10 mg PO TID 5 days #15 tabs 03/22/25 methylprednisolone 4 mg tablets in See Rx Instructions PO .COMPLEX 03/22/25 a dose pack (Medrol (Cricket)) #21 ea tizanidine 4 mg capsule 4 mg PO BID PRN muscle spasticity 03/22/25 #20 caps Allergies Allergy/AdvReac Type Severity Reaction Status Date / Time No Known Drug Allergies Allergy Verified 03/22/25 10:33 Review of Systems Status of ROS: Reports: 10 or more systems reviewed and unremarkable except as noted in History and below Narrative: Constitutional: No fevers, no weight gain or loss. Eyes: No discharge. No vision changes. HENT: No congestion, no sore throat, no ear pain. Cardiovascular: No chest pain, no palpitations. Respiratory: No shortness of breath, no wheezes, no cough. Gastrointestinal: No abdominal pain, no vomiting, no diarrhea. Genitourinary: No dysuria, no hematuria. Musculoskeletal: Normal range of motion. Low back pain radiating down the left leg as described above. Skin: No rashes, no pruritis. Neurological: No dizziness, weakness, sensory change, speech change. Endo/Heme/Allergies: No bruising or bleeding. No polydipsia. Pysch: no suicidality, no anxiety, no insomnia. All other systems reviewed and are negative. PFSH PFS Social History Smoking Status: Never smoker How often do you have a drink containing alcohol: never AUDIT-C Alcohol total score: 0 Non-prescribed substance use: denies use Exam Narrative: Exam Narrative: Constitutional: Well-developed, well-nourished, no acute distress. HEENT: Normocephalic, atraumatic. Neck: Normal range of motion. Nontender. Supple. Heart: Intact distal pulses. Lungs: No chest discomfort. No wheezes, rhonchi, or rales. Abdomen: Nontender. Back: Scoliosis. Pain in the low back radiating down the left leg. Extremities: Normal range of motion. No injury. Skin: Intact. No rash. Warm. No erythema or pallor. Neurologic: No altered sensation. No weakness. Alert and oriented. Psychiatric: No suicidality. No anxiety or depression. No insomnia. Nursing notes and vitals signs are reviewed. Const: Vital Signs, click to edit/add: Vital Signs - 24 hr 03/23/25 18:25 Temperature 98.8 F Pulse Rate [Pulse Oximeter] 98 Respiratory Rate 20 Blood Pressure [Ri ght Upper Arm] 161/83 H Pulse Oximetry 95 Oxygen Delivery Me thod Room Air Course Vital Signs Vital signs: Initial Vital Signs Temperature 98.8 F 03/23/25 18:25 Temperature Source Temporal Artery Scan 03/23/25 18:25 Pulse Rate 98 03/23/25 18:25 Respiratory Rate 20 03/23/25 18:25 Blood Pressure 161/83 H 03/23/25 18:25 Blood Pressure Mean 109 H 03/23/25 18:25 Blood Pressure Position Standing 03/23/25 18:25 Pulse Oximetry 95 03/23/25 18:25 Oxygen Delivery Method Room Air 03/23/25 18:25 Vital Signs Temperature 98.8 F 03/23/25 18:25 Pulse Rate 98 03/23/25 18:25 Respiratory Rate 20 03/23/25 18:25 Blood Pressure 161/83 H 03/23/25 18:25 Pulse Oximetry 95 03/23/25 18:25 Oxygen Delivery Method Room Air 03/23/25 18:25 Temperature 98.8 F 03/23/25 18:25 Pulse Rate 98 03/23/25 18:25 Respiratory Rate 20 03/23/25 18:25 Blood Pressure 161/83 H 03/23/25 18:25 Pulse Oximetry 95 03/23/25 18:25 Oxygen Delivery Method Room Air 03/23/25 18:25 MDM - Back Pain/Injury MDM Narrative Medical decision making narrative: This patient returns today stating that she continues to have intense pain with certain positions. Any time she gets up from a comfortable sitting position she is dealing with severe pain and has trouble getting comfortable again. She returns despite taking 5 different medicines I prescribed for her yesterday. She has been to our spine clinic and is awaiting a referral to a spine surgery Clinic but no such phone call has been brought to her to arrange such an appointment. She did receive an intramuscular injection of morphine 10 mg today. I advised her to of connect with Dr. Lucas in our spine clinic or with her primary physician to attempt to accelerate an appointment with a spine clinic that can perform surgery if needed. The patient reports that Dr. Lucas stated that if the injection does not seem to help her her that she would in fact be a good candidate for a surgery. Discharge Plan Discharge Clinical Impression: Left lumbar radiculopathy, Spinal stenosis, Scoliosis Patient Disposition: Home w/ Parent or Adult Condition: Stable Additional Instructions: Continue current medications. Connect with Dr. Lucas in the spine clinic tomorrow or with your primary physician or both to update them on your current circumstances and hopefully accelerate the arrangement of an appointment at a spine surgical clinic. Dr. Lucas is a spine clinic can be reached by dialing [phone]. Prescriptions: No Action alendronate 70 mg tablet 70 mg PO temazepam 7.5 mg capsule 7.5 - 15 mg PO QPM PRN (Reason: insomnia) omeprazole 20 mg capsule,delayed release(DR/EC) 20 mg PO DAILY fluticasone propionate 50 mcg/actuation spray,suspension 2 spray INTRANASAL DAILY cyclobenzaprine 5 mg tablet 5 mg PO 3XD rosuvastatin 5 mg tablet 5 mg PO QPM hydrocodone-acetaminophen 5-325 mg tablet 1 tab PO Q4-6H PRN (Reason: pain) Qty: 20 0RF ketorolac 10 mg tablet 10 mg PO TID 5 Days Qty: 15 0RF gabapentin 100 mg capsule 100 mg PO TID Qty: 60 2RF methylprednisolone [Medrol ([place])] 4 mg tablets,dose pack See Rx Instructions .ROUTE .COMPLEX Qty: 21 0RF Rx Instructions: orally per package directions tizanidine 4 mg capsule 4 mg PO BID PRN (Reason: muscle spasticity) Qty: 20 0RF Follow Up/Referrals: Diana Martin DO [Primary Care Provider, Family Practice] Stand Alone Forms: MyHealth Info Instructions
== END 2025-03-23 19:31 | disposition home or self-care (01) ==
LOC: ED 19:23
PROVIDERS: Emergency Provider Emergency Medicine Emergency Medical Services; PCP Family Medicine
DX: M54.42 Lumbago with sciatica, left side (principal); M54.16 Radiculopathy, lumbar region; M41.9 Scoliosis, unspecified; M48.061 Spinal stenosis, lumbar region without neurogenic claudication
CPT/HCPCS: 96372; 99284; J2270

== ENCOUNTER 2025-04-01 09:08 | Outpatient (CLI) | payer MEDICARE, BC, SELFPAY | END 2025-04-01 09:09 | disposition home or self-care (01) | LOC: INJ CL 09:09 | PROVIDERS: PCP Family Medicine; Visit Provider Family Medicine | DX: M54.16 Radiculopathy, lumbar region (principal); M48.062 Spinal stenosis, lumbar region with neurogenic claudication; M51.369 Other intervertebral disc degeneration, lumbar region without mention of lumbar back pain or lower extremity pain | CPT/HCPCS: 62323; J0702; Q9966 ==